=== PATIENT | male | born 1985 | race Caucasian/White ===

== ENCOUNTER → 2020-05-19 | Outpatient (REF) | payer BC ==
--- NOTE | 2020-05-19 14:44 | Diagnostic Imaging Report ---
PROCEDURE: MRI left joint lower extremity without contrast. TECHNIQUE: Multiplanar, multisequence non contrast-enhanced MRI of the left lower extremity was accomplished. INDICATION: Left ankle injury on 03/25/2020 with persistent left ankle pain COMPARISON: None FINDINGS: No acute fracture is seen in the left ankle. Alignment is normal. No joint effusion is seen. The anterior and posterior syndesmotic ligaments are intact. There is a complete tear of the anterior talofibular ligament. The calcaneofibular ligament appears completely torn as well. The posterior talofibular ligament is intact. The deep fibers of the deltoid ligament appear intact. The spring ligament is intact. The plantar fascia is not thickened. The sinus tarsi demonstrates fat signal. The Achilles tendon is intact. The peroneal tendons appear intact and normal in course. The flexor tendons are intact. The extensor tendons are intact. No focal muscular atrophy is seen. No fluid collections or masses are seen in the soft tissues. IMPRESSION: 1. Tears of the anterior talofibular and calcaneofibular ligaments. No acute osseous abnormality seen in the left ankle. Dictated by: Dictated on workstation # [id number]
== END ==
LOC: RAD 12:40
PROVIDERS: ATTEND Family Medicine
DX: M25.572 Pain in left ankle and joints of left foot (principal)
CPT/HCPCS: 73721

== ENCOUNTER → 2021-02-22 | Outpatient (CLI) | payer OTHER ==
--- NOTE | 2021-02-22 18:04 | Diagnostic Imaging Report ---
EXAMINATION: Left ankle MRI without contrast 02/22/2021. TECHNIQUE: Multiplanar, multisequence non contrast-enhanced MRI of the left lower extremity was accomplished. INDICATION: Injury while getting out of a truck. Ankle pain. FINDINGS: The Achilles tendon appears intact. The plantar fascia is unremarkable. Postoperative changes are seen along the lateral malleolus causing susceptibility artifact limiting evaluation of the surrounding structures. There is T2 hyperintensity within the medial malleolus likely due to contusion. No displaced fracture is appreciated. The ankle mortise appears unremarkable. Talar dome is within normal limits. The extensor and flexor tendons are intact. The peroneal tendons are intact as visualized. Portions obscured by the artifact in the lateral malleolus. The anterior and posterior inferior tibiofibular ligaments appear intact. The anterior talofibular ligament is ill-defined and thickened in appearance likely due to a prior injury. There is no adjacent edema to suggest acute abnormality. The posterior talofibular ligament is intact. The deltoid ligament appears intact. IMPRESSION: 1. Chronic appearing tear or sprain of the anterior talofibular ligament with remaining ligaments unremarkable. 2. Visualized tendons intact 3. Edema within the medial malleolus likely due to contusion. Dictated by: Dictated on workstation # [id number]
== END ==
LOC: RAD 15:30
DX: S99.912A Unspecified injury of left ankle, initial encounter (principal); V69.9XXA Occupant (driver) (passenger) of heavy transport vehicle injured in unspecified traffic accident, initial encounter
CPT/HCPCS: 73721

== ENCOUNTER 2021-06-07 11:46 | Outpatient (CLI) | payer BC, OTHER ==
[~2021-06-07] VITALS: Ht 175.3 cm; Wt 95.5 kg
[2021-06-07 11:51] VITALS: BP 126/77
[2021-06-07] MEDS ORDERED: ACETAMINOPHEN 500 MG TAB (TYLENOL) PO PRN (12:15)
[2021-06-07] MEDS ORDERED: CASIRIVIMAB/IMDEVIMAB 1,200 MG in NS (IVPB) 250 ML IV ONE (12:15)
[2021-06-07] MEDS ORDERED: diphenhydrAMINE 50 MG/ML INJ (BENADRYL) IV PRN (12:15)
[2021-06-07] MEDS ORDERED: ONDANSETRON 4 MG/2 ML (SDV) Z0FRAN IV PRN (12:15)
[2021-06-07] MEDS ORDERED: EPINEPHrine INJECTION 1 MG/ML AMP IM PRN (12:15)
[2021-06-07 13:15] VITALS: BP 119/61
== END 2021-06-07 14:10 ==
LOC: INFUSION 11:46
PROVIDERS: ATTEND Nurse Practitioner Family
DX: U07.1 COVID-19 (principal)